=== PATIENT | male | born 1950 | race Two or more races ===

== ENCOUNTER 2020-04-03 11:08 | Inpatient (IN) | payer MEDICARE, OTHER ==
[~2020-04-03] VITALS: Ht 170.2 cm; Wt 54.1 kg
[2020-04-03] MEDS ORDERED: BISA10SU61 RC (16:01)
[2020-04-03] MEDS ORDERED: ACET-2154 PO (16:01)
[2020-04-03] MEDS ORDERED: AMLO10TA4 PO (16:01)
[2020-04-03] MEDS ORDERED: TEMA15CA5 PO (16:09)
[2020-04-03] MEDS ORDERED: HYDR-4384 PO (16:09)
[2020-04-03] MEDS ORDERED: HYDR-4077 PO (16:09)
[2020-04-03] MEDS ORDERED: MAGN400O6 PO (16:09)
[2020-04-03] MEDS ORDERED: ENOX40DI SQ (16:09)
[2020-04-03] MEDS ORDERED: DOCU-141 PO (16:09)
[2020-04-03] MEDS ORDERED: TAMS-3 PO (16:09)
[2020-04-03] MEDS ORDERED: PANT40TA2 PO (16:09)
[2020-04-03] MEDS ORDERED: NITR100C6 PO (16:09)
[2020-04-03] MEDS ORDERED: Z GUARD REMEDY PASTE 57 GM TUBE TOP PRN (16:15)
[2020-04-03 17:05] VITALS: BP 145/80
[2020-04-03] MEDS ORDERED: MAGNESIUM HYDROXIDE 30 ML LIQUID UDC PO PRN (18:00)
[2020-04-03] MEDS ORDERED: TEMAZEPAM 15 MG CAPSULE PO PRN (18:00)
[2020-04-03] MEDS ORDERED: BISACODYL 10 MG SUPP.RECT RC PRN (18:00)
[2020-04-03] MEDS ORDERED: HYDROCODONE/APAP 5-325MG TABLET PO PRN (18:00)
--- NOTE | 2020-04-03 18:00 | NUR ---
patient admitted from [facility], status post right hip surgery, patient is alert, oriented x3, with forgetfulnes, with history of dementia,hypertension,BPH,Incision site is clean and dry,benjy are present,no active bleeding noted at incision site, skin is intact, no sob, patient noted tachy pulse in 120s, NORA Castorena made aware, however no distress noted Addendum: 04/03/20 at 1924 by NITISH WYATT RN, RN noted with purplish discoloration to both gluteal folds, skin intact
[2020-04-03] MEDS ORDERED: MIRALAX 17 GM POWD.PACK PO ONE (19:00)
[2020-04-03 20:14] VITALS: BP 136/77
[2020-04-03] MEDS: TAMSULOSIN HCL 0.4 MG CAP.SR.24H PO SCH (20:37)
[2020-04-03] MEDS: NITROFURANTOIN/NITROFURAN MAC 100 MG CAPSULE PO SCH (20:37)
--- NOTE | 2020-04-03 21:50 | NUR ---
NOTIFIED AND VERIFIED WITH PHARMACIST MARS THAT PATIENT HAS ORDER FOR NORCO AND WITH RECORDED ALLERGY FOR CODEINE. PATIENT HAS BEEN TAKING NORCO FROM HOME AND [facility] AND NO REACTIONS HAVE BEEN OBSERVED. PATIENT ALSO DENIES HAVING ALLERGY TO CODEINE. PATIENT HAS HISTORY OF DEMENTIA. VERIFIED WITH AMARA BERRIOS DNP REGARDING NORCO AND CODEINE ALLERGY. PER AMARA, HE HAS REVIEW PATIENT RECORD AND MAY TAKE NORCO.
--- NOTE | 2020-04-04 04:00 | NUR ---
PATIENT WITH COMPLAINT OF DYSURIA. BLADDER SCAN 490ML. LAVELLE CHAPPELL NP MADE AWARE WITH ORDER FOR UA, URINE CULTURE AND STRAIGHT CATH. ORDERS CARRIED OUT. PATIENT MADE AWARE AND AGREED WITH PLAN OF CARE. OBTAINED URINE SPECIMEN ORDERED. WILL CONTINUE TO MONITOR PATIENT'S URINARY OUTPUT.
[2020-04-04 05:10] VITALS: BP 143/83
[2020-04-04] MEDS: PANTOPRAZOLE SODIUM 40 MG TABLET.DR PO SCH (06:02)
[2020-04-04 06:12] LABS: BASOPHILS % (AUTO) 0.4 % (0.0-2.0); EOSINOPHILS # (AUTO) 0.1 K/uL (0.0-0.7); EOSINOPHILS % (AUTO) 1.8 % (0.0-7.0); HEMATOCRIT 27.2 % (36.7-47.1); HEMOGLOBIN 9.1 g/dL (12.5-16.3); LYMPHOCYTES # (AUTO) 0.6 K/uL (20.0-40.0); LYMPHOCYTES % (AUTO) 8.2 % (20.5-51.5); MEAN CORPUSCULAR HEMOGLOBIN 31.6 uug (23.8-33.4); MEAN CORPUSCULAR HGB CONC 33 g/dL (32.5-36.3); MEAN CORPUSCULAR VOLUME 94.5 fL (73.0-96.2); MONOCYTES # (AUTO) 0.8 K/uL (2.0-10.0); MONOCYTES % (AUTO) 10.4 % (0.0-11.0); NEUTROPHILS # (AUTO) 6.1 K/uL (1.8-8.9); NEUTROPHILS % (AUTO) 79.2 % (38.5-71.5); PLATELET COUNT (AUTO) 291 K/uL (152-348); RED BLOOD CELL COUNT(AUTO) 2.88 MIL/uL (4.06-5.63); WHITE BLOOD COUNT (AUTO) 7.7 K/uL (3.6-10.2)
[2020-04-04 06:16] LABS: BILIRUBIN,TOTAL 0.6 mg/dL (0.2-1.0); CREATININE 2.1 mg/dL (0.6-1.3); MAGNESIUM 1.8 mg/dL (1.8-2.4); PHOSPHOROUS 3.5 mg/dL (2.5-4.9); POTASSIUM 3.5 mmol/L (3.5-5.1); TOTAL PROTEIN, SERUM 6.7 g/dL (6.4-8.2)
[2020-04-04] MEDS: HYDROCODONE/APAP 10-325 MG TABLET PO PRN ×2 (06:49→13:19)
[2020-04-04 08:00] VITALS: BP 157/95
[2020-04-04] MEDS ORDERED: ENOXAPARIN SODIUM 40 MG/0.4 ML DISP.SYRIN SQ SCH (09:00)
[2020-04-04] MEDS: hydrALAZINE HCL 50 MG TABLET PO SCH ×3 (09:28→16:27)
[2020-04-04] MEDS: DOCUSATE SODIUM 100 MG CAPSULE PO SCH (09:28)
[2020-04-04] MEDS: NITROFURANTOIN/NITROFURAN MAC 100 MG CAPSULE PO SCH (09:28)
[2020-04-04] MEDS: AMLODIPINE 10 MG TABLET PO SCH (09:29)
[2020-04-04 10:45] LABS: *BILIRUBIN,URIN NEGATIVE (NEGATIVE); *BLOOD, URINE 1+ (NEGATIVE); *CLARITY,URINE CLEAR (CLEAR); *COLOR,URINE YELLOW (YELLOW); *KETONES,URINE NEGATIVE (NEGATIVE); *UROBILINOGEN,URINE 0.2 E.U./dl (NORMAL); LEUKOCYTE ESTERASE ,URINE NEGATIVE (NEGATIVE); NITRITE, URINE NEGATIVE (NEGATIVE); UGLUCOSE NEGATIVE (NEGATIVE)
[2020-04-04 11:02] LABS: RBC,URINE 20-50 /HPF (0-3); WBC,URINE 0-3 /HPF (0-3)
[2020-04-04 11:03] LABS: BACTERIA,URINE NONE SEEN /HPF (NONE SEEN); SQUAMOUS EPITHELIAL CELL,UR NONE SEEN /HPF (NONE SEEN)
[2020-04-04 16:22] VITALS: BP 137/80
[2020-04-04] MEDS: SULFAMETH/TRIMETH 800/160 MG TABLET PO SCH (16:26)
[2020-04-04 16:32] VITALS: BP 137/80
--- NOTE | 2020-04-04 19:45 | NUR ---
Received patient in bed. AAO x4. No acute distress or SOB was noted. No complain of pain at this time. On 1 L O2 via NC. Physical assessment done. safety measures maintain, fall prevention observed. Skin assessed. Bed in locked and low position, side rails up x2 for safety, bed alarm on. Call light and frequently using items within reach. Continue to monitor.
[2020-04-04] MEDS: TAMSULOSIN HCL 0.4 MG CAP.SR.24H PO SCH (20:36)
[2020-04-04 20:39] VITALS: BP 145/84
--- NOTE | 2020-04-04 23:50 | NUR ---
Patient complained of suprapubic pain and stated, " I need to pee but It cannot come out". Bladder distension and suprapubic tenderness were noted. Bladder scan showed 650 ml urine. Straight catheter was done and 1000 ml urine came out. Patient felt better and his pain pain relieved. Continue to monitor and will endorse to the day shift nurse.
[2020-04-05 05:13] VITALS: BP 125/85
[2020-04-05] MEDS: PANTOPRAZOLE SODIUM 40 MG TABLET.DR PO SCH (06:00)
[2020-04-05] MEDS: SULFAMETH/TRIMETH 800/160 MG TABLET PO SCH (09:14)
[2020-04-05] MEDS: AMLODIPINE 10 MG TABLET PO SCH (09:14)
[2020-04-05] MEDS: DOCUSATE SODIUM 100 MG CAPSULE PO SCH (09:14)
[2020-04-05] MEDS: hydrALAZINE HCL 50 MG TABLET PO SCH ×3 (09:14→17:09)
[2020-04-05] MEDS: ENOXAPARIN SODIUM 30 MG/0.3 ML DISP.SYRIN SUBCUT SCH (09:16)
[2020-04-05] MEDS: HYDROCODONE/APAP 10-325 MG TABLET PO PRN (10:44)
--- NOTE | 2020-04-05 15:56 | NUR ---
HAVING DIFFICULTY URINATING. MIN OUTPUT SO FAR STATES HE FEELS LIKE HE HAS TO URINE BUT NOTHING COMES OUT. BLADDER SCAN DONE SHOWED >[address] CATH DONE RECEIVED 1000ML CLEAR GONZALO URINE. NORMA WELL BY PT. STATES HE FEELS MORE RELIEF AND BETTER AFTER ST CATH
[2020-04-05 16:04] VITALS: BP 114/71
[2020-04-05] MEDS: TAMSULOSIN HCL 0.4 MG CAP.SR.24H PO SCH (20:00)
[2020-04-05 20:08] VITALS: BP 117/71
[2020-04-06] MEDS: HYDROCODONE/APAP 10-325 MG TABLET PO PRN ×3 (00:17→18:51)
--- NOTE | 2020-04-06 00:47 | NUR ---
Patient complained that he cannot pee. Bladder scan done and showed 414 ml urine. Straight catheter was done and 400 ml urine came out. Patient felt better. Continue to monitor.
[2020-04-06 04:00] VITALS: BP 138/91
[2020-04-06] MEDS: PANTOPRAZOLE SODIUM 40 MG TABLET.DR PO SCH (06:15)
--- NOTE | 2020-04-06 06:28 | NUR ---
Patient did not urinate. Bladder scan done and showed 489 ml urine. Straight catheter was done and 500 ml hector urine came out. Patient felt better. Continue to monitor.
[2020-04-06] MEDS: DOCUSATE SODIUM 100 MG CAPSULE PO SCH (09:07)
[2020-04-06] MEDS: SULFAMETH/TRIMETH 800/160 MG TABLET PO SCH (09:07)
[2020-04-06] MEDS: ENOXAPARIN SODIUM 30 MG/0.3 ML DISP.SYRIN SUBCUT SCH (09:08)
[2020-04-06] MEDS: hydrALAZINE HCL 50 MG TABLET PO SCH ×3 (09:08→17:45)
[2020-04-06] MEDS: AMLODIPINE 10 MG TABLET PO SCH (09:08)
--- NOTE | 2020-04-06 09:38 | NUR ---
Patient awake, alert, oriented x 3, not in any form of distress. Patient transferred to sit on the wheelchair assisted by PT and OT. No complain of pain or discomfort at this time. Needs attended to promptly. Due medications administered and tolerated well. Safety measures maintained.
[2020-04-06 11:20] VITALS: BP 123/72
--- NOTE | 2020-04-06 11:27 | NUR ---
Social Work Note: Patient presented disoriented and disorganized. Patient was unable to verify his address. This medical underwriter contacted patient's daughter Misa ([phone]) who stated that patient resides at [facility] [address] [place] [address]; ([phone]).
--- NOTE | 2020-04-06 12:46 | NUR ---
WOUND CARE CONSULT: PT PRESENTS WITH BLANCHABLE REDNESS TO BONY SACRAL AREA, BRUISING/DISCOLORATION TO BUTTOCKS AND RT HIP SURGICAL DRESSING WHICH IS DRY AND INTACT, PRESENT ON ADMISSION. PT HAS RT KNEE IMMOBILIZER IN PLACE. RCOMMENDATIONS MADE FOR SKIN PROTECTION. DISCUSSED WITH NURSING STAFF. PT IS CONTINENT AT THIS TIME. WILL SEE PRN. NOLEN IN AGREEMENT WITH PLAN OF CARE. Addendum: 04/06/20 at 1248 by MAYANK JEAN RN Amended: Links added.
--- NOTE | 2020-04-06 13:43 | NUR ---
INDIVIDUALIZED PLAN OF CARE
[2020-04-06 15:18] VITALS: BP 106/59
--- NOTE | 2020-04-06 18:53 | NUR ---
Bladder scan done at 6PM as ordered which showed 273ml. No in and out catheterization done since out of parameter as ordered. Patient denies any abdominal discomfort at this time. Needs attended to. Given PRN pain medications for right hip pain as ordered. Turned and repositioned every 2 hours. Call light and frequently used items placed within patient's reach . Will endorse accordingly to night coordinator nurse.
--- NOTE | 2020-04-06 19:30 | NUR ---
RECEIVED PT AWAKE, ALERT AND ORIENTEDX3. PT IN NO ACUTE RESPIRATORY DISTRESS. SAFETY AND COMFORT PROVIDED. WILL CONTINUE TO MONITOR.
[2020-04-06 20:23] VITALS: BP 106/59
[2020-04-06] MEDS: TAMSULOSIN HCL 0.4 MG CAP.SR.24H PO SCH (20:55)
[2020-04-06] MEDS: ACETAMINOPHEN 325 MG TABLET PO PRN (20:56)
[2020-04-07 04:46] VITALS: BP 131/68
--- NOTE | 2020-04-07 06:21 | NUR ---
PT IN NO ACUTE RESPIRATORY DISTRESS. IV INTACT. PRESCRIBED MEDICATION GIVEN AND PT TOLERATED IT WELL. ON 2359 BLADDER SCANNER SHOWED 398ML. AND ON 0550H SHOWED <100ML. PT TURNED AND REPOSITIONED. SAFETY AND COMFORT PROVIDED. ALL NEEDS ARE MET. WILL ENDORSE TO INCOMING NURSE FOR CONTINUITY OF CARE.
[2020-04-07] MEDS: PANTOPRAZOLE SODIUM 40 MG TABLET.DR PO SCH (06:24)
[2020-04-07 06:26] LABS: BILIRUBIN,TOTAL 0.7 mg/dL (0.2-1.0); CREATININE 2.6 mg/dL (0.6-1.3); MAGNESIUM 2.1 mg/dL (1.8-2.4); PHOSPHOROUS 3.7 mg/dL (2.5-4.9); POTASSIUM 4.4 mmol/L (3.5-5.1); TOTAL PROTEIN, SERUM 6.2 g/dL (6.4-8.2)
[2020-04-07 06:54] LABS: EOSINOPHILS # (AUTO) 0.3 K/uL (0.0-0.7); WHITE BLOOD COUNT (AUTO) 8.1 K/uL (3.6-10.2)
[2020-04-07 07:03] LABS: BASOPHILS % (AUTO) 0.5 % (0.0-2.0); HEMATOCRIT 23.6 % (36.7-47.1); HEMOGLOBIN 8.1 g/dL (12.5-16.3); LYMPHOCYTES % (AUTO) 12.8 % (20.5-51.5); MEAN CORPUSCULAR HEMOGLOBIN 32.4 uug (23.8-33.4); MEAN CORPUSCULAR HGB CONC 34 g/dL (32.5-36.3); MEAN CORPUSCULAR VOLUME 94.7 fL (73.0-96.2); MONOCYTES # (AUTO) 1.1 K/uL (2.0-10.0); MONOCYTES % (AUTO) 13.1 % (0.0-11.0); NEUTROPHILS # (AUTO) 5.6 K/uL (1.8-8.9); NEUTROPHILS % (AUTO) 69.6 % (38.5-71.5); PLATELET COUNT (AUTO) 375 K/uL (152-348); RED BLOOD CELL COUNT(AUTO) 2.49 MIL/uL (4.06-5.63)
[2020-04-07 07:49] VITALS: BP 118/61
[2020-04-07] MEDS: SULFAMETH/TRIMETH 800/160 MG TABLET PO SCH (08:25)
[2020-04-07] MEDS: DOCUSATE SODIUM 100 MG CAPSULE PO SCH (08:25)
[2020-04-07] MEDS: AMLODIPINE 10 MG TABLET PO SCH (08:28)
[2020-04-07] MEDS: hydrALAZINE HCL 50 MG TABLET PO SCH ×3 (08:28→16:35)
[2020-04-07] MEDS: ENOXAPARIN SODIUM 30 MG/0.3 ML DISP.SYRIN SUBCUT SCH (08:35)
[2020-04-07] MEDS: HYDROCODONE/APAP 10-325 MG TABLET PO PRN (09:08)
[2020-04-07 11:06] LABS: CALCITRIOL VIT D,1,25 DIHYDROX 49.6 pg/mL (19.9-79.3)
[2020-04-07 14:00] LABS: *CREATININE,URINE 71.2 mg/dL (30-125); *URINE TOTAL PROTEIN RANDOM 40.7 mg/dL (<150/24HR)
[2020-04-07 14:21] LABS: *BILIRUBIN,URIN NEGATIVE (NEGATIVE); *BLOOD, URINE NEGATIVE (NEGATIVE); *CLARITY,URINE CLEAR (CLEAR); *COLOR,URINE YELLOW (YELLOW); *KETONES,URINE NEGATIVE (NEGATIVE); *UROBILINOGEN,URINE 0.2 E.U./dl (NORMAL); LEUKOCYTE ESTERASE ,URINE NEGATIVE (NEGATIVE); NITRITE, URINE NEGATIVE (NEGATIVE); UGLUCOSE NEGATIVE (NEGATIVE)
[2020-04-07 14:48] LABS: MUCUS,URINE FEW /LPF (0-FEW); WBC,URINE 0-3 /HPF (0-3)
[2020-04-07 15:34] VITALS: BP 102/63
--- NOTE | 2020-04-07 18:45 | NUR ---
Patient remains alert, oriented x 4, not in any distress, on room air during the shift. He complained of pain on the right hip, given PRN pain medication as ordered with noted relief. Patient participated with PT and OT. Needs attended to promptly. No spontaneous voiding noted during the shift, no complain of abdominal discomfort. Bladder scan done at 12PM which showed 506, did in and out catheterization with a urine output of 700ml clear yellow urine. Another scan done at 6PM which showed 308ml, no in and out catheterization done as ordered parameter. Kenyatta Scruggs CARPET JOURNEYMAN made aware and gave order to insert Stockton catheter. Call light and frequently used items placed within patient's reach. Will endorse accordingly to restaurant shift supervisor nurse.
[2020-04-07 20:00] VITALS: BP 119/67
[2020-04-07] MEDS: TAMSULOSIN HCL 0.4 MG CAP.SR.24H PO SCH (20:59)
--- NOTE | 2020-04-07 22:35 | NUR ---
Received pt sleeping comfortably. Aroused easily to verbal stimuli. Alert and oriented x3-4. No acute distress noted. Carried out order to insert Stockton, 16 Spanish, draining with yellow colored urine. Due med given as ordered. Denies pain/ discomfort. Safety measures maintained. Call light and personal items within reach. Will continue to monitor.
[2020-04-08 04:00] VITALS: BP 117/67
--- NOTE | 2020-04-08 06:05 | NUR ---
Pt refused picture on right hip surgical area. Risks and benefits explained, still refused. Continue to monitor.
[2020-04-08 06:09] LABS: BASOPHILS % (AUTO) 0.5 % (0.0-2.0); EOSINOPHILS # (AUTO) 0.2 K/uL (0.0-0.7); EOSINOPHILS % (AUTO) 2.5 % (0.0-7.0); HEMATOCRIT 22.6 % (36.7-47.1); HEMOGLOBIN 7.8 g/dL (12.5-16.3); LYMPHOCYTES # (AUTO) 1.2 K/uL (20.0-40.0); LYMPHOCYTES % (AUTO) 16.6 % (20.5-51.5); MEAN CORPUSCULAR HEMOGLOBIN 32.5 uug (23.8-33.4); MEAN CORPUSCULAR HGB CONC 34 g/dL (32.5-36.3); MEAN CORPUSCULAR VOLUME 94.4 fL (73.0-96.2); MONOCYTES # (AUTO) 0.9 K/uL (2.0-10.0); MONOCYTES % (AUTO) 12.4 % (0.0-11.0); NEUTROPHILS # (AUTO) 4.8 K/uL (1.8-8.9); PLATELET COUNT (AUTO) 404 K/uL (152-348)
[2020-04-08 06:12] LABS: BILIRUBIN,TOTAL 0.3 mg/dL (0.2-1.0); CREATININE 2.5 mg/dL (0.6-1.3); MAGNESIUM 2.3 mg/dL (1.8-2.4); PHOSPHOROUS 3.5 mg/dL (2.5-4.9); POTASSIUM 4.4 mmol/L (3.5-5.1); TOTAL PROTEIN, SERUM 6.2 g/dL (6.4-8.2)
[2020-04-08] MEDS: PANTOPRAZOLE SODIUM 40 MG TABLET.DR PO SCH (06:12)
[2020-04-08 07:37] VITALS: BP 107/66
[2020-04-08] MEDS: HYDROCODONE/APAP 10-325 MG TABLET PO PRN ×3 (07:57→20:33)
[2020-04-08] MEDS: SULFAMETH/TRIMETH 800/160 MG TABLET PO SCH (08:05)
[2020-04-08] MEDS: DOCUSATE SODIUM 100 MG CAPSULE PO SCH (08:05)
[2020-04-08] MEDS: AMLODIPINE 10 MG TABLET PO SCH (08:05)
[2020-04-08] MEDS: hydrALAZINE HCL 50 MG TABLET PO SCH ×3 (08:06→16:50)
[2020-04-08] MEDS: ENOXAPARIN SODIUM 30 MG/0.3 ML DISP.SYRIN SUBCUT SCH (08:07)
[2020-04-08 13:26] LABS: *BILIRUBIN,URIN NEGATIVE (NEGATIVE); *BLOOD, URINE NEGATIVE (NEGATIVE); *CLARITY,URINE CLEAR (CLEAR); *COLOR,URINE YELLOW (YELLOW); *KETONES,URINE NEGATIVE (NEGATIVE); *UROBILINOGEN,URINE 0.2 E.U./dl (NORMAL); LEUKOCYTE ESTERASE ,URINE NEGATIVE (NEGATIVE); NITRITE, URINE NEGATIVE (NEGATIVE); UGLUCOSE NEGATIVE (NEGATIVE)
[2020-04-08 13:31] LABS: *CREATININE,URINE 70.5 mg/dL (30-125); *URINE TOTAL PROTEIN RANDOM 46.6 mg/dL (<150/24HR)
[2020-04-08 13:36] LABS: BACTERIA,URINE NONE SEEN /HPF (NONE SEEN); RBC,URINE 0-3 /HPF (0-3); SQUAMOUS EPITHELIAL CELL,UR FEW /HPF (NONE SEEN); URINE AMORPHOUS PHOSPHATES FEW /HPF; WBC,URINE 0-3 /HPF (0-3)
[2020-04-08 13:37] LABS: MUCUS,URINE FEW /LPF (0-FEW)
[2020-04-08 15:18] VITALS: BP 108/59
--- NOTE | 2020-04-08 19:17 | NUR ---
patient is alert, oriented x2, no sob,resp even nonlabored,skin warm and dry to touch, pain managed with pain medication and distraction, kimball catheter intact, draining yellow color urine, no hematuria, no sediments noted, patient is on anticoagulant, no signs and symptoms of bleeding noted. kept clean and dry. incision site is clean and dry, benjy are intact.
[2020-04-08 20:00] VITALS: BP 108/66
[2020-04-08] MEDS: TAMSULOSIN HCL 0.4 MG CAP.SR.24H PO SCH (20:33)
--- NOTE | 2020-04-08 20:38 | NUR ---
Received pt resting in bed. AAO x2-3. No acute distress noted. Pain of 8/10 on the right hip. PRN pain med and other due med given as ordered. Pt noted to be easily irritated. Pt non- cooperative in turning and repositioning, only agreeing on offloading both heels. Risks and benefits explained, pt still refused. Stockton catheter is patent and intact, draining clear yellow colored urine. Safety measures maintained. Call light and personal items within reach. Will continue to monitor.
[2020-04-09 04:00] VITALS: BP 117/67
[2020-04-09 05:58] LABS: BASOPHILS % (AUTO) 0.5 % (0.0-2.0); EOSINOPHILS # (AUTO) 0.3 K/uL (0.0-0.7); EOSINOPHILS % (AUTO) 3.7 % (0.0-7.0); HEMATOCRIT 24.1 % (36.7-47.1); HEMOGLOBIN 8.1 g/dL (12.5-16.3); LYMPHOCYTES # (AUTO) 1.6 K/uL (20.0-40.0); LYMPHOCYTES % (AUTO) 22.3 % (20.5-51.5); MEAN CORPUSCULAR HEMOGLOBIN 32.1 uug (23.8-33.4); MEAN CORPUSCULAR HGB CONC 34 g/dL (32.5-36.3); MEAN CORPUSCULAR VOLUME 94.9 fL (73.0-96.2); MONOCYTES # (AUTO) 0.9 K/uL (2.0-10.0); MONOCYTES % (AUTO) 12.3 % (0.0-11.0); NEUTROPHILS # (AUTO) 4.4 K/uL (1.8-8.9); NEUTROPHILS % (AUTO) 61.2 % (38.5-71.5); PLATELET COUNT (AUTO) 454 K/uL (152-348); RED BLOOD CELL COUNT(AUTO) 2.54 MIL/uL (4.06-5.63); WHITE BLOOD COUNT (AUTO) 7.2 K/uL (3.6-10.2)
[2020-04-09 06:07] LABS: BILIRUBIN,TOTAL 0.2 mg/dL (0.2-1.0); CREATININE 2.5 mg/dL (0.6-1.3); MAGNESIUM 2.1 mg/dL (1.8-2.4); PHOSPHOROUS 3.7 mg/dL (2.5-4.9); POTASSIUM 4.1 mmol/L (3.5-5.1); TOTAL PROTEIN, SERUM 6.5 g/dL (6.4-8.2)
[2020-04-09] MEDS: PANTOPRAZOLE SODIUM 40 MG TABLET.DR PO SCH (06:14)
[2020-04-09 07:30] VITALS: BP 112/58
[2020-04-09] MEDS: DOCUSATE SODIUM 100 MG CAPSULE PO SCH (08:54)
[2020-04-09] MEDS: AMLODIPINE 10 MG TABLET PO SCH (08:57)
[2020-04-09] MEDS: hydrALAZINE HCL 50 MG TABLET PO SCH ×3 (08:58→17:14)
[2020-04-09] MEDS: ENOXAPARIN SODIUM 30 MG/0.3 ML DISP.SYRIN SUBCUT SCH (08:59)
[2020-04-09] MEDS: HYDROCODONE/APAP 10-325 MG TABLET PO PRN (13:02)
--- NOTE | 2020-04-09 19:56 | NUR ---
Patient remained alert, oriented x 3, not in any form of distress, on room air during the shift. Patient complained of pain on right hip and given PRN pain medication as ordered with noted relief. Needs attended to promptly. Patient turned and reposition every 2 hours, and offloaded heels. Kept patient clean and dry. Indwelling catheter in place draining clear yellow urine. Call light and frequently used items placed within patient's reach. Endorsed accordingly to shift supervisor film processing nurse.
[2020-04-09 20:00] VITALS: BP 111/68
[2020-04-09] MEDS: TAMSULOSIN HCL 0.4 MG CAP.SR.24H PO SCH (20:22)
[2020-04-10 04:00] VITALS: BP 120/64
[2020-04-10] MEDS: PANTOPRAZOLE SODIUM 40 MG TABLET.DR PO SCH (06:10)
--- NOTE | 2020-04-10 07:29 | NUR ---
Pt awake, A&O x 3 resting comfortably in bed. Denies any pain. No acute respiratory distress noted. Pt turned Q2H throughout shift. Stockton in place and draining clear yellow urine. Drsg to Rt hip D&I. Pt slept well throughout the shift. No voiced concerns.
[2020-04-10 08:00] VITALS: BP 116/65
[2020-04-10] MEDS: hydrALAZINE HCL 50 MG TABLET PO SCH ×3 (09:00→17:12)
[2020-04-10] MEDS: AMLODIPINE 10 MG TABLET PO SCH (09:00)
[2020-04-10] MEDS: DOCUSATE SODIUM 100 MG CAPSULE PO SCH (09:14)
[2020-04-10] MEDS: ENOXAPARIN SODIUM 30 MG/0.3 ML DISP.SYRIN SUBCUT SCH (09:16)
[2020-04-10 12:00] VITALS: BP 109/69
--- NOTE | 2020-04-10 14:21 | NUR ---
INTERDISCIPLINARY TEAM CONFERENCE
[2020-04-10 16:00] VITALS: BP 120/73
--- NOTE | 2020-04-10 18:57 | NUR ---
GRZEGORZ REMOVED FROM RIGHT HIP ORDERED. NORMA WELL. NO DISCOMFORT NOTED. NOW RESTING QUIETLY. PICS TAKEN AND PLACED IN CHART STERI STRIPS APPLIED
[2020-04-10 19:44] VITALS: BP 117/71
--- NOTE | 2020-04-10 20:00 | NUR ---
RECEIVED PATIENT AWAKE IN BED. A/O X4. DENIES ANY PAIN OR DISCOMFORT. NO RESP. DISTRESS NOTED. VS WNL. DRESSING NOTED TO RIGHT HIP, C/D/I. F/C INTACT AND DRAINING WELL. BED ALARM ON. CALL LIGHT IN REACH. ALL NEEDS ATTENDED. WILL CONTINUE TO MONITOR AND ASSESS.
[2020-04-10] MEDS: TAMSULOSIN HCL 0.4 MG CAP.SR.24H PO SCH (20:35)
[2020-04-11 04:43] VITALS: BP 110/67
[2020-04-11 05:40] LABS: BASOPHILS % (AUTO) 0.5 % (0.0-2.0); EOSINOPHILS # (AUTO) 0.3 K/uL (0.0-0.7); EOSINOPHILS % (AUTO) 3.1 % (0.0-7.0); HEMATOCRIT 24.3 % (36.7-47.1); HEMOGLOBIN 8.2 g/dL (12.5-16.3); LYMPHOCYTES # (AUTO) 1.4 K/uL (20.0-40.0); LYMPHOCYTES % (AUTO) 16.2 % (20.5-51.5); MEAN CORPUSCULAR HEMOGLOBIN 31.7 uug (23.8-33.4); MEAN CORPUSCULAR HGB CONC 34 g/dL (32.5-36.3); MEAN CORPUSCULAR VOLUME 94.1 fL (73.0-96.2); MONOCYTES # (AUTO) 0.9 K/uL (2.0-10.0); MONOCYTES % (AUTO) 10.7 % (0.0-11.0); NEUTROPHILS # (AUTO) 5.9 K/uL (1.8-8.9); NEUTROPHILS % (AUTO) 69.5 % (38.5-71.5); PLATELET COUNT (AUTO) 540 K/uL (152-348); RED BLOOD CELL COUNT(AUTO) 2.58 MIL/uL (4.06-5.63); WHITE BLOOD COUNT (AUTO) 8.5 K/uL (3.6-10.2)
[2020-04-11 05:54] LABS: CREATININE 2.4 mg/dL (0.6-1.3); MAGNESIUM 2.2 mg/dL (1.8-2.4); POTASSIUM 4.2 mmol/L (3.5-5.1)
[2020-04-11] MEDS: PANTOPRAZOLE SODIUM 40 MG TABLET.DR PO SCH (06:09)
[2020-04-11 07:30] VITALS: BP 117/73
[2020-04-11] MEDS: AMLODIPINE 10 MG TABLET PO SCH (08:31)
[2020-04-11] MEDS: DOCUSATE SODIUM 100 MG CAPSULE PO SCH (08:31)
[2020-04-11] MEDS: hydrALAZINE HCL 50 MG TABLET PO SCH ×3 (08:32→17:24)
[2020-04-11] MEDS: ENOXAPARIN SODIUM 30 MG/0.3 ML DISP.SYRIN SUBCUT SCH (08:36)
--- NOTE | 2020-04-11 09:00 | NUR ---
AWAKE ALERT RIGHT HIP WITH STERI STRIPS WITH NO DRAINAGE AT THIS TIME CALL LIGHTS AND PERSONAL BELONGINGS ARE WITHIN EASY REACH.NOT IN DISTRESS AT THIS TIME
[2020-04-11 16:00] VITALS: BP 122/67
--- NOTE | 2020-04-11 17:00 | NUR ---
AWAKE ALERT ORIENTED VERBALLY RESPONDS WHEN SPOKEN TO [facility]ER CATH REMAINS IN PLACE AT THIS TIME TOLERATED PHYSICAL THERAPY ORDERED NOT IN DISTRESS AT THIS TIME.
[2020-04-11] MEDS: TAMSULOSIN HCL 0.4 MG CAP.SR.24H PO SCH (21:21)
--- NOTE | 2020-04-11 21:30 | NUR ---
SLEEPING ON AND OFF AROUSES EASILY DUE MEDICATIONS GIVEN AND HE IS COMPLIANT RIGHT HIP INCISION REMAINS INTACT CALL IGHTS AND PERSONAL BELONGINGS ARE WITHIN EASY REACH MADE COMFORTABLE WILL CONTINUE TO OBSERVE.
[2020-04-11 22:39] VITALS: BP 122/71
[2020-04-12 04:22] VITALS: BP 108/73
--- NOTE | 2020-04-12 06:00 | NUR ---
RESTING IN BED DENIES PAIN OR DISCOMFORTS COMPLIANT WITH MEDICATIONS ON ROOM AIR WITH NO C/O NOTED AT THIS TIME WILL CONTINUE TO OBSERVE AND PROVIDE SAFETY.
[2020-04-12] MEDS: PANTOPRAZOLE SODIUM 40 MG TABLET.DR PO SCH (06:27)
[2020-04-12 07:30] VITALS: BP 113/69
[2020-04-12] MEDS: DOCUSATE SODIUM 100 MG CAPSULE PO SCH (08:56)
[2020-04-12] MEDS: ACETAMINOPHEN 325 MG TABLET PO PRN (08:56)
[2020-04-12] MEDS: ENOXAPARIN SODIUM 30 MG/0.3 ML DISP.SYRIN SUBCUT SCH (08:57)
[2020-04-12] MEDS: hydrALAZINE HCL 50 MG TABLET PO SCH ×3 (08:58→17:33)
[2020-04-12] MEDS: AMLODIPINE 10 MG TABLET PO SCH (09:00)
--- NOTE | 2020-04-12 09:35 | NUR ---
Pt received resting in bed, no acute distress, no SOB, or mild pain noted. Pt compliant with routine medication and PRN Tylenol administration. Repositioned for comfort. Poor appetite noted. Low BP of 113/69, Amlodipine BP medication held. All comfort and safety measures implemented. right hip incision is clean and dry. No s/s of infection. Call light within reach. Will continue to monitor.
[2020-04-12 16:00] VITALS: BP 117/70
[2020-04-12 21:11] VITALS: BP 125/77
[2020-04-12] MEDS: TAMSULOSIN HCL 0.4 MG CAP.SR.24H PO SCH (21:18)
[2020-04-13 06:19] LABS: BASOPHILS % (AUTO) 0.4 % (0.0-2.0); EOSINOPHILS # (AUTO) 0.3 K/uL (0.0-0.7); EOSINOPHILS % (AUTO) 2.6 % (0.0-7.0); HEMATOCRIT 25.3 % (36.7-47.1); HEMOGLOBIN 8.6 g/dL (12.5-16.3); LYMPHOCYTES # (AUTO) 1.7 K/uL (20.0-40.0); LYMPHOCYTES % (AUTO) 16.6 % (20.5-51.5); MEAN CORPUSCULAR HEMOGLOBIN 32.1 uug (23.8-33.4); MEAN CORPUSCULAR HGB CONC 34 g/dL (32.5-36.3); MEAN CORPUSCULAR VOLUME 94.6 fL (73.0-96.2); MONOCYTES % (AUTO) 9.5 % (0.0-11.0); NEUTROPHILS # (AUTO) 7.2 K/uL (1.8-8.9); NEUTROPHILS % (AUTO) 70.9 % (38.5-71.5); PLATELET COUNT (AUTO) 645 K/uL (152-348); RED BLOOD CELL COUNT(AUTO) 2.68 MIL/uL (4.06-5.63); WHITE BLOOD COUNT (AUTO) 10.1 K/uL (3.6-10.2)
[2020-04-13 06:24] VITALS: BP 117/71
[2020-04-13] MEDS: PANTOPRAZOLE SODIUM 40 MG TABLET.DR PO SCH (06:25)
[2020-04-13 06:30] LABS: BILIRUBIN,TOTAL 0.3 mg/dL (0.2-1.0); CREATININE 2.3 mg/dL (0.6-1.3); MAGNESIUM 2.2 mg/dL (1.8-2.4); PHOSPHOROUS 3.7 mg/dL (2.5-4.9); POTASSIUM 4.4 mmol/L (3.5-5.1); TOTAL PROTEIN, SERUM 7.1 g/dL (6.4-8.2)
--- NOTE | 2020-04-13 06:54 | NUR ---
Pt received resting in bed, no acute distress, no SOB, denies any pain/discomfort. Axox3-4, vitals stable. Patient took all medication. All needs attended to, kept comfortable and dry. 100 cc of clear yellow urine from Stockton. All comfort and safety measures implemented. right hip incision is clean and dry. No s/s of infection. Call light within reach. Will continue to monitor. Will endorse report to next shift.
[2020-04-13 08:00] VITALS: BP 121/72
[2020-04-13] MEDS: DOCUSATE SODIUM 100 MG CAPSULE PO SCH (08:24)
[2020-04-13] MEDS: ENOXAPARIN SODIUM 30 MG/0.3 ML DISP.SYRIN SUBCUT SCH (08:27)
[2020-04-13] MEDS: AMLODIPINE 10 MG TABLET PO SCH (08:31)
[2020-04-13] MEDS: hydrALAZINE HCL 50 MG TABLET PO SCH ×3 (08:31→17:25)
--- NOTE | 2020-04-13 09:30 | NUR ---
Patient noted resting in bed, assisted up in bed for breakfast, took all am medications, Stockton catheter in placed and draining, denies pain at this time, no signs of distress noted, call light in reach, bed locked and in lowest position, all needs met at this time.
[2020-04-13] MEDS: HYDROCODONE/APAP 10-325 MG TABLET PO PRN (12:22)
[2020-04-13 17:39] VITALS: BP 117/75
--- NOTE | 2020-04-13 20:00 | NUR ---
RECEIVED PATIENT AWAKE IN BED. A/O X3, FORGETFUL AT TIMES. DENIES ANY PAIN OR DISCOMFORT. NO RESP. DISTRESS NOTED. VS WNL. STERI-STRIPS NOTED TO RIGHT HIP, C/D/I. F/C INTACT AND DRAINING WELL. BED ALARM ON. CALL LIGHT IN REACH. ALL NEEDS ATTENDED. WILL CONTINUE TO MONITOR AND ASSESS.
[2020-04-13 20:10] VITALS: BP 126/77
[2020-04-13] MEDS: TAMSULOSIN HCL 0.4 MG CAP.SR.24H PO SCH (20:30)
[2020-04-14 04:10] VITALS: BP 124/77
[2020-04-14] MEDS: PANTOPRAZOLE SODIUM 40 MG TABLET.DR PO SCH (06:06)
--- NOTE | 2020-04-14 06:35 | NUR ---
PATIENT AWAKE IN BED. SLEPT WELL. DENIES PAIN OR DISCOMFORT AT THIS TIME. VSS. BED ALARM ON. CALL LIGHT IN REACH. ALL NEEDS ATTENDED. WILL CONTINUE TO MONITOR AND ASSESS.
[2020-04-14 07:30] VITALS: BP 118/72
[2020-04-14] MEDS: DOCUSATE SODIUM 100 MG CAPSULE PO SCH (08:59)
[2020-04-14] MEDS: hydrALAZINE HCL 50 MG TABLET PO SCH ×3 (09:00→17:55)
[2020-04-14] MEDS: HYDROCODONE/APAP 10-325 MG TABLET PO PRN ×2 (09:00→20:25)
[2020-04-14] MEDS: AMLODIPINE 10 MG TABLET PO SCH (09:01)
[2020-04-14] MEDS: ENOXAPARIN SODIUM 30 MG/0.3 ML DISP.SYRIN SUBCUT SCH (09:08)
--- NOTE | 2020-04-14 14:18 | NUR ---
INTERDISCIPLINARY TEAM CONFERENCE
[2020-04-14 16:00] VITALS: BP 120/70
--- NOTE | 2020-04-14 19:45 | NUR ---
Awake, alert, in bed, able to move himself independently in bed. Complaint of tolerable right hip pain at this time, refused pain medication offered. Steri strips noted on right hip incision site. No redness/ no s/s of infection noted. Safety measures and fall precaution maintained. Continue care as planned.
[2020-04-14 20:22] VITALS: BP_SYST 98
[2020-04-14] MEDS: TAMSULOSIN HCL 0.4 MG CAP.SR.24H PO SCH (20:25)
[2020-04-15 04:37] VITALS: BP_SYST 98
[2020-04-15] MEDS: PANTOPRAZOLE SODIUM 40 MG TABLET.DR PO SCH (05:29)
--- NOTE | 2020-04-15 05:47 | NUR ---
Shift End Report: VS stable. Slept well. Medicated once with Hildebran for complaint of right hip pain with good relief. No further complaint presented. Made comfortable at all times. Stockton catheter intact and patent. Continue current rehab plan of care.
[2020-04-15] MEDS: hydrALAZINE HCL 50 MG TABLET PO SCH ×3 (09:05→18:34)
[2020-04-15] MEDS: DOCUSATE SODIUM 100 MG CAPSULE PO SCH (09:05)
[2020-04-15] MEDS: AMLODIPINE 10 MG TABLET PO SCH (09:05)
[2020-04-15] MEDS: ENOXAPARIN SODIUM 30 MG/0.3 ML DISP.SYRIN SUBCUT SCH (09:07)
[2020-04-15 12:00] VITALS: BP 123/75
[2020-04-15 16:00] VITALS: BP_SYST 112; BP_SYST 144; BP_DIAS 68; BP_DIAS 77
--- NOTE | 2020-04-15 19:30 | NUR ---
PATIENT CALM AND COMFORTABLE THROUGH OUT SHIFT WITH NO SIGNS OF DISTRESS ; PATIENT WITH STABLE VITAL SIGNS MEDICATION COMPLIANT.
--- NOTE | 2020-04-15 19:45 | NUR ---
Sleeping during initial rounds. No s/s of pain/discomforts noted. No s/s of respiratory distress. F/C intact and patent with moderate amount of clear yellow output. Safety measures and fall precaution maintained. Continue care as planned.
[2020-04-15 20:06] VITALS: BP 113/63
[2020-04-15] MEDS: TAMSULOSIN HCL 0.4 MG CAP.SR.24H PO SCH (20:41)
[2020-04-16 04:51] VITALS: BP 115/72
[2020-04-16] MEDS: PANTOPRAZOLE SODIUM 40 MG TABLET.DR PO SCH (05:29)
--- NOTE | 2020-04-16 06:03 | NUR ---
Shift End Report: VS stable. Slept well. No complaint presented all night. All needs attended and met. F/C intact and patent with adequate urine output. No significant event reported. Continue current rehab plan of care
[2020-04-16] MEDS: DOCUSATE SODIUM 100 MG CAPSULE PO SCH (08:48)
[2020-04-16] MEDS: AMLODIPINE 10 MG TABLET PO SCH (08:49)
[2020-04-16] MEDS: hydrALAZINE HCL 50 MG TABLET PO SCH ×3 (08:49→17:23)
[2020-04-16] MEDS: ACETAMINOPHEN 325 MG TABLET PO PRN (08:49)
[2020-04-16] MEDS: ENOXAPARIN SODIUM 30 MG/0.3 ML DISP.SYRIN SUBCUT SCH (08:56)
[2020-04-16 09:42] VITALS: BP 112/70
--- NOTE | 2020-04-16 13:28 | NUR ---
Received patient sleeping in bed in stable condition. Continue therapy for therapeutic exercises and increase strenght. Continue pain management PRN. tolerated well. S/P right femoral hemoarthroplasy, healing well. not in distress. will continue monitor
[2020-04-16 16:27] VITALS: BP 119/70
--- NOTE | 2020-04-16 17:00 | NUR ---
Patient continue therapy for increase strenght, endurance and therapeutic therapy. Continue pain management if needed. not in distress. will continue monitor
[2020-04-16 20:00] VITALS: BP 116/67
[2020-04-16] MEDS: TAMSULOSIN HCL 0.4 MG CAP.SR.24H PO SCH (20:12)
--- NOTE | 2020-04-16 20:30 | NUR ---
RECEIVED PATIENT AWAKE IN BED. A/O X3. PRIMARILY [place]ORE[place] SPEAKING BUT ABLE TO NEEDS KNOWN. DENIES PAIN OR DISCOMFORT. NO RESP. DISTRESS NOTED. 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 BED ALARM ON. CALL LIGHT IN REACH. ALL NEEDS ATTENDED. WILL CONTINUE TO MONITOR AND ASSESS.
[2020-04-17 04:00] VITALS: BP 121/72
--- NOTE | 2020-04-17 05:56 | NUR ---
PATIENT ASLEEP IN BED. SLEPT WELL THROUGHOUT THE NIGHT. VS WNL. BED ALARM ON. CALL LIGHT IN REACH. ALL NEEDS ATTENDED. WILL CONTINUE TO MONITOR AND ASSESS.
[2020-04-17] MEDS: PANTOPRAZOLE SODIUM 40 MG TABLET.DR PO SCH (06:19)
[2020-04-17] MEDS: AMLODIPINE 10 MG TABLET PO SCH (09:03)
[2020-04-17] MEDS: DOCUSATE SODIUM 100 MG CAPSULE PO SCH (09:03)
[2020-04-17] MEDS: hydrALAZINE HCL 50 MG TABLET PO SCH ×3 (09:03→16:38)
[2020-04-17] MEDS: ENOXAPARIN SODIUM 30 MG/0.3 ML DISP.SYRIN SUBCUT SCH (09:14)
[2020-04-17 09:30] VITALS: BP 113/70
[2020-04-17] MEDS: HYDROCODONE/APAP 10-325 MG TABLET PO PRN (10:32)
[2020-04-17 11:37] VITALS: BP 126/76
--- NOTE | 2020-04-17 14:18 | NUR ---
INTERDISCIPLINARY TEAM CONFERENCE
[2020-04-17 16:09] VITALS: BP 125/77
--- NOTE | 2020-04-17 16:32 | NUR ---
Patient continue therapy for ambulation and ADL activity. Cooperative and tolerated well. Continue pain management. [place] 10-325mg 1 tab given prior to therapy. Assisted patient from bed to bathroom. Refuse to use walker. Able to stand and transfer from bed to wheelchair with discomfort. will continue monitor
[2020-04-17] MEDS: TAMSULOSIN HCL 0.4 MG CAP.SR.24H PO SCH (20:01)
--- NOTE | 2020-04-17 21:35 | NUR ---
Received pt resting in bed. AAO x3. No acute distress noted. Denies pain/ discomfort. Due med given as ordered. Stockton catheter draining well with yellow colored urine. Skin care rendered. Mepilex applied on sacral area, both heels offloaded. Pt refused to be turned and repositioned. Risks and benefits explained, pt continues to refused stating that he wants to sleep and not to bother him. Safety measures maintained. Call light and personal items within reach. Will continue to monitor.
[2020-04-18 04:00] VITALS: BP 126/65
[2020-04-18] MEDS: PANTOPRAZOLE SODIUM 40 MG TABLET.DR PO SCH (06:12)
[2020-04-18 07:57] VITALS: BP 105/68
--- NOTE | 2020-04-18 08:02 | NUR ---
Patient noted resting in bed with eyes closed, no complaints of pain at this time, will premedicate prior to physical therapy, no signs of distress noted, call light in reach, bed locked and in lowest position, all needs met at this time.
[2020-04-18] MEDS: DOCUSATE SODIUM 100 MG CAPSULE PO SCH (08:09)
[2020-04-18] MEDS: hydrALAZINE HCL 50 MG TABLET PO SCH ×3 (08:09→17:42)
[2020-04-18] MEDS: HYDROCODONE/APAP 10-325 MG TABLET PO PRN (08:10)
[2020-04-18] MEDS: AMLODIPINE 10 MG TABLET PO SCH (08:10)
[2020-04-18] MEDS: ENOXAPARIN SODIUM 30 MG/0.3 ML DISP.SYRIN SUBCUT SCH (08:17)
[2020-04-18 16:42] VITALS: BP 120/77
[2020-04-18 20:18] VITALS: BP 119/76
[2020-04-18] MEDS: TAMSULOSIN HCL 0.4 MG CAP.SR.24H PO SCH (21:36)
[2020-04-19 05:07] VITALS: BP 115/77
[2020-04-19] MEDS: PANTOPRAZOLE SODIUM 40 MG TABLET.DR PO SCH (06:15)
--- NOTE | 2020-04-19 06:49 | NUR ---
Patient slept well. No SOB noted. No complaints of pain throughout the shift. F/C intact draining clear yellow urine. All needs attended. Will endorse accordingly
[2020-04-19 08:00] VITALS: BP 114/71
[2020-04-19] MEDS: ENOXAPARIN SODIUM 30 MG/0.3 ML DISP.SYRIN SUBCUT SCH (09:00)
[2020-04-19] MEDS: hydrALAZINE HCL 50 MG TABLET PO SCH ×3 (10:10→18:08)
[2020-04-19] MEDS: DOCUSATE SODIUM 100 MG CAPSULE PO SCH (10:10)
[2020-04-19] MEDS: AMLODIPINE 10 MG TABLET PO SCH (10:11)
[2020-04-19 12:00] VITALS: BP 107/67
[2020-04-19] MEDS: HYDROCODONE/APAP 10-325 MG TABLET PO PRN (15:00)
[2020-04-19 16:00] VITALS: BP 126/79
--- NOTE | 2020-04-19 19:00 | NUR ---
Patient in bed, resting. Alert awake x3. Patient denies any acute distress or pain. Patient on room air and saturating WNL. Patient's kimball is intact and draining clear, yellow urine. Patient's vitals stable. Safety measures in place. Bed low and locked in position. Call light within reach. Bed alarm on. Will continue with the plan of care.
[2020-04-19 20:05] VITALS: BP 116/73
[2020-04-19] MEDS: TAMSULOSIN HCL 0.4 MG CAP.SR.24H PO SCH (21:24)
[2020-04-20 04:43] VITALS: BP 120/40
[2020-04-20] MEDS: PANTOPRAZOLE SODIUM 40 MG TABLET.DR PO SCH (06:11)
--- NOTE | 2020-04-20 07:01 | NUR ---
Patient slept throughout the night. Patient is awake and denies any acute distress or pain at this time. Patient's vitals stable. Prescribed medications given, patient was compliant. Stockton is intact and draining clear, yellow urine. Fall precaution maintained. Needs attended. Safety measures in place. Bed low and locked position. Call light within reach. Bed alarm on. Will endorse to the oncoming nurse for the continuity of care.
[2020-04-20 08:00] VITALS: BP 122/80
[2020-04-20] MEDS: hydrALAZINE HCL 50 MG TABLET PO SCH ×3 (09:20→17:27)
[2020-04-20] MEDS: HYDROCODONE/APAP 10-325 MG TABLET PO PRN (09:20)
[2020-04-20] MEDS: DOCUSATE SODIUM 100 MG CAPSULE PO SCH (09:21)
[2020-04-20] MEDS: AMLODIPINE 10 MG TABLET PO SCH (09:21)
[2020-04-20] MEDS: ENOXAPARIN SODIUM 30 MG/0.3 ML DISP.SYRIN SUBCUT SCH (09:22)
[2020-04-20 09:40] LABS: BASOPHILS % (AUTO) 0.4 % (0.0-2.0); EOSINOPHILS # (AUTO) 0.2 K/uL (0.0-0.7); EOSINOPHILS % (AUTO) 2.1 % (0.0-7.0); HEMOGLOBIN 9.7 g/dL (12.5-16.3); LYMPHOCYTES # (AUTO) 1.7 K/uL (20.0-40.0); MEAN CORPUSCULAR HEMOGLOBIN 31.4 uug (23.8-33.4); MEAN CORPUSCULAR HGB CONC 33 g/dL (32.5-36.3); MEAN CORPUSCULAR VOLUME 94.1 fL (73.0-96.2); MONOCYTES # (AUTO) 0.8 K/uL (2.0-10.0); MONOCYTES % (AUTO) 10.2 % (0.0-11.0); NEUTROPHILS % (AUTO) 65.3 % (38.5-71.5); PLATELET COUNT (AUTO) 737 K/uL (152-348); RED BLOOD CELL COUNT(AUTO) 3.08 MIL/uL (4.06-5.63); WHITE BLOOD COUNT (AUTO) 7.7 K/uL (3.6-10.2)
[2020-04-20 10:00] LABS: CREATININE 2.2 mg/dL (0.6-1.3); MAGNESIUM 2.1 mg/dL (1.8-2.4); PHOSPHOROUS 3.9 mg/dL (2.5-4.9); POTASSIUM 4.1 mmol/L (3.5-5.1)
--- NOTE | 2020-04-20 12:00 | NUR ---
WOUND CARE CONSULT: PT SEEN FOR BUTTOCKS RASH WITH PEELING SKIN. RECOMMENDATIONS MADE FOR SKIN CARE AND PROTECTION. DISCUSSED WITH NURSING STAFF. CURRENT ALISON SCORE IS 17. WILL SEE PRN. IN AGREEMENT WITH PLAN OF CARE.
[2020-04-20 15:46] VITALS: BP 115/70
[2020-04-20] MEDS: CLOTRIMAZOLE 1% CREAM 30 GM TUBE TOP SCH (17:28)
--- NOTE | 2020-04-20 18:58 | NUR ---
PATIENT CALM AND COMFORTABLE WITH NO SIGNS OF DISTRESS;PATIENT AT BASELINE MENTAL STATUS. REPORT GIVEN TO ONCOMING NURSE.
--- NOTE | 2020-04-20 19:05 | NUR ---
PATIENT CALM AND COMFORTABLE WITH NO SIGNS OF DISTRESS;PATIENT AT BASELINE MENTAL STATUS. REPORT GIVEN TO ONCOMING NURSE.
[2020-04-20] MEDS: TAMSULOSIN HCL 0.4 MG CAP.SR.24H PO SCH (20:21)
[2020-04-20] MEDS: ACETAMINOPHEN 325 MG TABLET PO PRN (20:21)
[2020-04-20 20:22] VITALS: BP 125/74
[2020-04-21 04:54] VITALS: BP 115/67
[2020-04-21] MEDS: PANTOPRAZOLE SODIUM 40 MG TABLET.DR PO SCH (06:20)
--- NOTE | 2020-04-21 06:52 | NUR ---
Received patient resting in bed watching TV. No signs and symptoms of distress, no SOB noted. Vital signs stable. Patient complained 5/10 hip pain, gave Tylenol, effective. Patient requested sleeping aid, gave Restoril, effective Patient slept well. F/C intact draining clear yellow urine. All needs attended, kept clean dry and comfortable. No new changes. Plan is to discharge. Will endorse accordingly to next shift.
[2020-04-21 08:01] VITALS: BP 112/69
[2020-04-21] MEDS: DOCUSATE SODIUM 100 MG CAPSULE PO SCH (08:50)
[2020-04-21] MEDS: CLOTRIMAZOLE 1% CREAM 30 GM TUBE TOP SCH ×2 (08:50→16:14)
[2020-04-21] MEDS: ENOXAPARIN SODIUM 30 MG/0.3 ML DISP.SYRIN SUBCUT SCH (08:51)
[2020-04-21] MEDS: hydrALAZINE HCL 50 MG TABLET PO SCH ×3 (08:52→16:16)
[2020-04-21] MEDS: AMLODIPINE 10 MG TABLET PO SCH (08:53)
[2020-04-21] MEDS: HYDROCODONE/APAP 10-325 MG TABLET PO PRN ×2 (08:57→17:31)
--- NOTE | 2020-04-21 11:30 | NUR ---
Received an order from Dr. Douglas to remove kimball catheter. Patient made aware and agreeable.
[2020-04-21] MEDS ORDERED: TAMSULOSIN HCL 0.4 MG CAP.SR.24H PO ONE ×2 (13:15→21:00)
[2020-04-21 15:55] VITALS: BP 114/69
--- NOTE | 2020-04-21 17:45 | NUR ---
Received a discharge order to [facility] from Dr. Sweeney.
--- NOTE | 2020-04-21 18:30 | NUR ---
Patient noted with urinary retention, bladder scan showed 276ml. Dr. Douglas made aware and ordered to insert kimball catheter then OK for discharge. [facility] transportation called for picker packer and said the earliest available time is 7:45PM. Patient remains alert, oriented x 3, not in any form of distress on room air during the shift. He complained of pain on the right hip, given PRN pain medication as ordered with noted relief. Assisted patient with his needs promptly. Kept patient clean dry and comfortable. Turned and reposition every 2 hrs. Will endorse accordingly to production supervisor off shift nurse.
--- NOTE | 2020-04-21 18:45 | NUR ---
Inserted Fr 16 kimball catheter aseptically and patient tolerated well, drained clear yellow urine 250ml.
[2020-04-21 20:15] VITALS: BP 122/64
--- NOTE | 2020-04-21 20:33 | NUR ---
patient discharge to [facility]. VSS. Denies any pain nor any discomfort. [facility] ambulance pickup @ 2030pm
[2020-04-22] MEDS ORDERED: TAMSULOSIN HCL 0.4 MG CAP.SR.24H PO SCH (21:00)
== END 2020-04-21 20:44 | DRG 559 ==
PROVIDERS: ADMIT Physical Medicine & Rehabilitation Pain Medicine; ATTEND Physical Medicine & Rehabilitation Pain Medicine
DX: S72.011D Unspecified intracapsular fracture of right femur, subsequent encounter for closed fracture with routine healing (principal); N17.0 Acute kidney failure with tubular necrosis; I13.0 Hypertensive heart and chronic kidney disease with heart failure and stage 1 through stage 4 chronic kidney disease, or unspecified chronic kidney disease; I69.351 Hemiplegia and hemiparesis following cerebral infarction affecting right dominant side; N39.0 Urinary tract infection, site not specified; N13.8 Other obstructive and reflux uropathy; D63.1 Anemia in chronic kidney disease; F03.90 Unspecified dementia, unspecified severity, without behavioral disturbance, psychotic disturbance, mood disturbance, and anxiety; I50.9 Heart failure, unspecified; N18.3 Chronic kidney disease, stage 3 (moderate); K59.00 Constipation, unspecified; I25.10 Atherosclerotic heart disease of native coronary artery without angina pectoris; W19.XXXD Unspecified fall, subsequent encounter; Z96.641 Presence of right artificial hip joint; E11.22 Type 2 diabetes mellitus with diabetic chronic kidney disease; Z91.81 History of falling; N32.0 Bladder-neck obstruction; Z88.5 Allergy status to narcotic agent; Z88.8 Allergy status to other drugs, medicaments and biological substances; N40.1 Benign prostatic hyperplasia with lower urinary tract symptoms
CPT/HCPCS: 36415; 73502; 76770; 82652; 83735; 83970; 84100; 84156; 84300; 85025; 85610; 85730; 87086; A4663; C1758; J1650